=== PATIENT | female | born 1995 | race African-American/Black ===

== ENCOUNTER 2017-12-12 13:21 | Emergency (ER) | payer MEDICAID ==
[~2017-12-12] VITALS: Ht 165.1 cm; Wt 114.0 kg
[2017-12-12 13:48] VITALS: BP 153/79
[2017-12-12] MEDS ORDERED: DIPHENHYDRAMINE 50MG/ML VIAL IM ONE (15:15)
[2017-12-12] MEDS ORDERED: METHYLPREDNISOLONE SOD SUCC 125 MG/2 ML VIAL IM ONE (15:15)
== END 2017-12-12 16:29 | disposition home or self-care (01) ==
LOC: ER 14:23
DX: T78.1XXA Other adverse food reactions, not elsewhere classified, initial encounter (principal); X58.XXXA Exposure to other specified factors, initial encounter; F17.200 Nicotine dependence, unspecified, uncomplicated; F12.10 Cannabis abuse, uncomplicated; Z98.890 Other specified postprocedural states
CPT/HCPCS: 96372; 99284; J1200; J2930